=== PATIENT | female | born 1940 | race Caucasian/White ===

== ENCOUNTER 2018-12-19 16:35 | Emergency (ER) | payer MEDICARE, OTHER ==
[~2018-12-19] VITALS: Ht 162.6 cm; Wt 63.8 kg
[2018-12-19] MEDS ORDERED: LEVO-86 PO (16:41)
[2018-12-19] MEDS ORDERED: LABETALOL HCL 100 MG/20 ML VIAL IV STA (17:10)
[2018-12-19 17:38] VITALS: BP 188/81
[2018-12-19 17:42] LABS: BASO % 0.4 % (0.0-1.0); EOS # 0.1 10^3/uL (0.0-0.50); EOS % 0.5 % (0.0-3.0); HEMATOCRIT 29.7 % (36.0-47.0); HEMOGLOBIN 9.6 g/dl (12.0-15.5); LYMPH # 1.4 10^3/uL (1.5-4.5); LYMPH % 13.3 % (24.0-44.0); MEAN CORPUSCULAR HEMOGLOBIN 30.5 pg (27.0-33.0); MEAN CORPUSCULAR HGB CONC 32.3 g/dl (32.0-36.5); MEAN CORPUSCULAR VOLUME 94.3 fl (80.0-96.0); MONO # 0.8 10^3/uL (0.0-0.8); MONO % 7.3 % (0.0-5.0); NEUTROPHILS # 8.2 10^3/uL (1.8-7.7); NEUTROPHILS % 76.3 % (36.0-66.0); PLATELET COUNT, AUTOMATED 339 10^3/uL (150-450); RED BLOOD COUNT 3.15 10^6/uL (4.00-5.40); WHITE BLOOD COUNT 10.8 10^3/uL (4.0-10.0)
--- NOTE | 2018-12-19 17:47 | REP ---
Clinical: Hypertension and peripheral edema. Technique: PA and lateral. Comparison: None. Findings: Mediastinum and cardiac silhouette are normal. Lung bernal demonstrate chronic interstitial prominence and trace linear left basilar fibroatelectatic changes. No focal consolidation. No effusion. No evidence for pulmonary vascular congestion. No pneumothorax. Skeletal structures demonstrate age-related osteopenia and degenerative change. Impression: Chronic-appearing changes as noted above. No focal consolidation or obvious evidence to suggest CHF/pulmonary vascular congestion. Electronically Signed by Jori Perez MD 12/19/2018 05:38 P
[2018-12-19 17:55] LABS: INR 1.12; PROTHROMBIN TIME 14.1 SECONDS (11.8-14.0)
[2018-12-19 17:56] LABS: PARTIAL THROMBOPLASTIN TIME 26.8 SECONDS (25.0-38.4)
[2018-12-19 18:16] LABS: ALBUMIN 2.3 GM/DL (3.2-5.2); ALT/SGPT 25 U/L (12-78); BILIRUBIN,DIRECT 0.2 MG/DL (0.0-0.2); BILIRUBIN,TOTAL 0.5 MG/DL (0.2-1.0); BLOOD UREA NITROGEN 18 MG/DL (7-18); CALCIUM LEVEL 8.3 MG/DL (8.8-10.2); CARBON DIOXIDE LEVEL 29 MEQ/L (21-32); CHLORIDE LEVEL 102 MEQ/L (98-107); CK-MB VALUE MASS 1.1 NG/ML (<3.6); CPK CREATINE PHOSPHOKINASE 109 U/L (26-192); CREATININE FOR GFR 0.95 MG/DL (0.55-1.30); FREE T4 1.26 NG/DL (0.76-1.46); GLOMERULAR FILTRATION RATE > 60.0 (>32); GLUCOSE, FASTING 97 MG/DL (70-100); LIPASE 86 U/L (73-393); MB/CK RELATIVE INDEX 1.01 (< OR =4); POTASSIUM SERUM 3.8 MEQ/L (3.5-5.1); SODIUM LEVEL 137 MEQ/L (136-145); TOTAL PROTEIN 6.4 GM/DL (6.4-8.2); TROPONIN I < 0.02 NG/ML (< 0.10)
--- NOTE | 2018-12-19 19:57 | REPVR ---
EXAM: US Duplex Bilateral Lower Extremity Veins EXAM DATE/TIME: 12/19/2018 6:29 PM CLINICAL HISTORY: 78 years old, female; Swelling (edema) of limb; Lower extremity, bilateral; Additional info: Low ext edema R/O dvt TECHNIQUE: Imaging protocol: Real-time duplex ultrasound of the Bilateral Lower Extremities with 2-D ponce scale, color Doppler flow and spectral waveform analysis with image documentation. Complete exam focused on the bilateral lower extremity veins. COMPARISON: No relevant prior studies available. FINDINGS: Right deep veins: The common femoral, femoral, and popliteal veins are patent without thrombus. Normal compressibility and/or augmentation response. Right superficial veins: Saphenofemoral junction is patent without thrombus. Left deep veins: The common femoral, femoral, and popliteal veins are patent without thrombus. Normal compressibility and/or augmentation response. Left superficial veins: Saphenofemoral junction is patent without thrombus. Soft tissues: Unremarkable. IMPRESSION: No evidence of deep venous thrombosis from the common femoral to the popliteal veins bilaterally. Electronically signed by: Brian Gonzalez On 12/19/2018 19:56:57 PM
[2018-12-19 23:04] VITALS: BP 159/66
[2018-12-19] MEDS ORDERED: HYDR25TAB PO (23:09)
--- NOTE | 2018-12-20 08:15 | ECGEPIP ---
[facility] - ED Test Date: 2018-12-19 Pat Name: LARY CAMPBELL Department: Room: - Gender: Female Vehicle Technician: ANGÉLICA : 1940 Requested By: JOSE Mckeon Order Number: [id number] Reading MD: Susana Young Measurements Intervals [place] Rate: 100 P: MN: 0 QRS: 1 QRSD: 81 T: 59 QT: 339 QTc: 438 Interpretive Statements SINUS RHYTHM PACS NSTTW ABNORMALITY NO PRIOR ABNORMAL RHYTHM ECG Electronically Signed on 12-20-2018 8:15:28 EDT by Susana Young
== END 2018-12-19 23:26 | disposition home or self-care (01) ==
LOC: M ED 16:35
DX: R60.0 Localized edema (principal); R11.0 Nausea; J84.111 Idiopathic interstitial pneumonia, not otherwise specified; E03.9 Hypothyroidism, unspecified